=== PATIENT | female | born 1960 | race Caucasian/White ===

== ENCOUNTER 2016-11-22 16:39 | Emergency (ER) | payer MEDICAID, OTHER ==
[~2016-11-22] VITALS: Ht 162.6 cm; Wt 89.0 kg
[~2016-11-22 16:39] MED LIST: ASPIRIN PO; CEVI30CA PO; FLOUXETINE PO; FOLI-43 PO; GEMF600T PO; HYDR200T35 PO; LEVOTHYROXINE PO; LORA0.5T2 PO; MELO-58 PO; RANI15SY; TEMA15CA PO; TERB250T11 PO
[2016-11-22 16:48] VITALS: BP 102/68
== END 2016-11-23 01:27 | disposition left against medical advice (07) ==
LOC: ER 11-23 01:08
DX: Z53.21 Procedure and treatment not carried out due to patient leaving prior to being seen by health care provider (principal)

== ENCOUNTER 2021-03-18 11:04 | Emergency (ER) | payer MEDICAID ==
[~2021-03-18] VITALS: Ht 157.5 cm; Wt 85.0 kg
[~2021-03-18 11:04] MED LIST changes: +MELO-106 PO; -MELO-58 PO; -TERB250T11 PO; +TERB250T51 PO; +TYLENOL #3 PO
[2021-03-18] MEDS ORDERED: ASPIRIN 81MG TABLET PO ONE (11:30)
[2021-03-18 11:51] LABS: BASOPHILS % 1.3 % (0.0-2.0); HEMATOCRIT. 34.6 % (36.0-48.0); MEAN CORPUSCULAR HEMOGLOBIN 32.2 pg (28.0-32.0); MEAN CORPUSCULAR VOLUME 93.1 fL (81.0-99.0); MEAN PLATELET VOLUME 8.3 fl (7.4-10.4); MONOCYTES % 9.1 % (2.0-8.0); NEUTROPHILS % 62.6 % (40.0-76.0); PLATELET 319 x1000/uL (130-400); RED BLOOD CELL COUNT 3.72 mill/uL (4.2-5.4); RED CELL DISTRIBUTION WIDTH 13.1 % (11.6-14.6)
[2021-03-18 11:59] LABS: CHLORIDE 109 mEq/L (98-107)
[2021-03-18] MEDS: NITROGLYCERIN 0.4MG TABLET SL SL PRN ×3 (11:59→12:43)
[2021-03-18 16:14] VITALS: BP 127/75
== END 2021-03-18 16:22 | disposition home or self-care (01) ==
LOC: ER 11:04
DX: R07.89 Other chest pain (principal)
CPT/HCPCS: 36415; 71045; 80053; 83880; 84484; 85025; 93005; 99285; Z7610

== ENCOUNTER 2022-05-29 14:40 | Emergency (ER) | payer MEDICAID ==
[~2022-05-29] VITALS: Ht 154.9 cm; Wt 80.0 kg
[~2022-05-29 14:40] MED LIST changes: -CEVI30CA PO; +CEVI30CA12 PO; -TERB250T51 PO; +TERB250T88 PO
[2022-05-29] MEDS ORDERED: SODIUM CHLORIDE 0.9% 1,000 ML IV ONE (15:30)
[2022-05-29 15:54] LABS: BASOPHILS % 1.5 % (0.0-2.0); EOSINOPHILS % 5.9 % (0.0-5.0); HEMATOCRIT. 37.8 % (36.0-48.0); LYMPHOCYTES % 37.3 % (20.0-50.0); MEAN CORPUSCULAR HEMOGLOBIN 31.9 pg (28.0-32.0); MEAN CORPUSCULAR VOLUME 93.1 fL (81.0-99.0); MEAN PLATELET VOLUME 8.9 fl (7.4-10.4); MONOCYTES % 9.5 % (2.0-8.0); NEUTROPHILS % 45.8 % (40.0-76.0); PLATELET 315 x1000/uL (130-400); RED BLOOD CELL COUNT 4.06 mill/uL (4.2-5.4); RED CELL DISTRIBUTION WIDTH 12.9 % (11.6-14.6)
[2022-05-29 15:55] LABS: CLARITY URINE CLEAR (CLEAR); COLOR URINE YELLOW (YELLOW); KETONES URINE NEGATIVE (NEGATIVE); LEUKOCYTE ESTERASE URINE 3+ (NEGATIVE); NITRITE URINE NEGATIVE (NEGATIVE); OCCULT BLOOD URINE TRACE (NEGATIVE); PH URINE 6.5 (4.5-8.0); PROTEIN URINE NEGATIVE (NEGATIVE); SPECIFIC GRAVITY URINE 1.004 (1.005-1.030); UROBILINOGEN URINE 0.2 E.U./dL (0.2-1.0)
[2022-05-29 16:00] LABS: CHLORIDE 107 mEq/L (98-107)
[2022-05-29 16:04] LABS: PROTHROMBIN TIME 10.5 sec (9.6-11.0)
[2022-05-29 16:59] VITALS: BP 153/66
[2022-05-29] MEDS ORDERED: NITR-87 MT (18:55)
== END 2022-05-29 19:40 | disposition home or self-care (01) ==
LOC: ER 14:40
DX: N39.0 Urinary tract infection, site not specified (principal); R53.1 Weakness; D64.9 Anemia, unspecified; F41.9 Anxiety disorder, unspecified; F32.9 Major depressive disorder, single episode, unspecified; Z90.49 Acquired absence of other specified parts of digestive tract; M79.7 Fibromyalgia; Z79.899 Other long term (current) drug therapy
CPT/HCPCS: 36415; 74176; 80053; 81003; 83690; 85025; 85610; 86850; 86900; 86901; 93005; 99285; J7030

== ENCOUNTER 2023-12-04 19:10 | Emergency (ER) | payer MEDICAID ==
[~2023-12-04] VITALS: Ht 157.5 cm; Wt 78.0 kg
[~2023-12-04 19:10] MED LIST changes: -ASPIRIN PO; +BACL20TA PO; -CEVI30CA12 PO; +CYCL10TA21 PO; +DICL100G58 TP; +FERR325T6 PO; -FLOUXETINE PO; +FLUO20CA33 PO; +FOLI-43 MT; +FURO40TA5 PO; -GEMF600T PO; -HYDR200T35 PO; -LEVOTHYROXINE PO; +LIP40 PO; +LORA-249 PO; +MECL-217 PO; +MELO-104 PO; +METH2.5T MT; +METO-396 PO; -RANI15SY; -TEMA15CA PO; -TERB250T88 PO; -TYLENOL #3 PO
[2023-12-04 19:52] VITALS: O2SAT 98
[2023-12-04] MEDS: MAGNESIUM/ALUMINUM HYDROXIDE/SIMETHICONE 30ML UDC PO STA (20:21)
[2023-12-04] MEDS: ACETAMINOPHEN 325MG TABLET PO STA (20:21)
[2023-12-04 20:58] LABS: CHLORIDE 107 mEq/L (98-107); SODIUM 142 mEq/L (136-145)
[2023-12-04 20:59] LABS: CALCIUM 10.1 mg/dL (8.7-10.4); CARBON DIOXIDE 24 mEq/L (21-32)
[2023-12-04 21:01] LABS: BASOPHILS % 1.2 % (0.0-2.0); EOSINOPHILS % 2.9 % (0.0-5.0); HEMATOCRIT. 35.1 % (36.0-48.0); HEMOGLOBIN. 12.1 g/dL (12.0-16.0); LYMPHOCYTES % 30.9 % (20.0-50.0); MEAN CORPUSCULAR HEMOGLOBIN 32.4 pg (28.0-32.0); MEAN CORPUSCULAR HGB CONC 34.5 g/dL (31.0-37.0); MEAN CORPUSCULAR VOLUME 93.7 fL (81.0-99.0); MONOCYTES % 7.8 % (2.0-8.0); NEUTROPHILS % 57.2 % (40.0-76.0); PLATELET 339 x1000/uL (130-400); RED BLOOD CELL COUNT 3.74 mill/uL (4.2-5.4); RED CELL DISTRIBUTION WIDTH 13.3 % (11.6-14.6); WHITE BLOOD COUNT 9.1 x1000/uL (4.5-11.0)
[2023-12-04 21:04] LABS: CREATININE 0.7 mg/dL (0.6-1.0); GLUCOSE 91 mg/dL (70-105); UREA NITROGEN BLOOD 11 mg/dL (9-23)
[2023-12-04 21:06] LABS: ALANINE AMINOTRANSFERASE 51 IU/L (10-49); ALBUMIN 4.8 g/dL (3.2-4.8); ASPARTATE AMINOTRANSFERASE 37 IU/L (<34); BILIRUBIN TOTAL 1.1 mg/dL (0.1-1.0); PROTEIN TOTAL 7.2 g/dL (6.0-8.3)
[2023-12-04] MEDS: POTASSIUM CHLORIDE 20MEQ/PACKET PO ONE (22:00)
[2023-12-04] MEDS ORDERED: FAMO-135 MT (23:08)
[2023-12-04] MEDS ORDERED: IMOD MT (23:08)
[2023-12-04 23:27] VITALS: BP 135/77; PULSE 60; RESP 16; TEMP 98.1
== END 2023-12-04 23:18 | disposition home or self-care (01) ==
LOC: ER 19:10
DX: K29.70 Gastritis, unspecified, without bleeding (principal); F41.9 Anxiety disorder, unspecified; J45.909 Unspecified asthma, uncomplicated; F32.9 Major depressive disorder, single episode, unspecified; E78.00 Pure hypercholesterolemia, unspecified; I10 Essential (primary) hypertension; M79.7 Fibromyalgia; Z79.899 Other long term (current) drug therapy
CPT/HCPCS: 36415; 76705; 80053; 85025; 99284

== ENCOUNTER 2025-01-01 21:05 | Inpatient (IN) | payer MEDICARE, MEDICAID ==
[~2025-01-01] VITALS: Ht 152.4 cm; Wt 77.3 kg
[2025-01-01 21:05] VITALS: BP 120/71; PULSE 58; RESP 18; RESP 20; TEMP 36.4; TEMP 36.4736; O2SAT 96
[~2025-01-01 21:05] MED LIST changes: +ASPI-1406 PO; +CLON-493 PO; +FAMO-135 MT; +IMOD MT; +ISOS40TA17 PO; +LABE200T9 PO; +NIFE-32 PO; +SENN-174 PO; +SEVE800T8 PO; +SPIR25TA6 PO; +SUCR1TAB PO; +THIA100T72 PO
[2025-01-01] MEDS ORDERED: NITROGLYCERIN 0.4MG TABLET SL SL PRN (21:45)
[2025-01-01] MEDS ORDERED: GUAIFENESIN 200MG/10ML SUGAR FREE UDC PO PRN (21:45)
[2025-01-01] MEDS ORDERED: CLONIDINE 0.1MG TABLET PO PRN (21:45)
[2025-01-01] MEDS ORDERED: HYDROXYZINE 25MG TABLET PO PRN (21:45)
[2025-01-01] MEDS ORDERED: NALOXONE HCL 0.4MG/ML 1ML VIAL IV PRN (21:45)
[2025-01-01] MEDS ORDERED: IPRATROPIUM/ALBUTEROL 0.5-3(2.5)MG/3ML NEB HHN PRN (21:45)
[2025-01-01] MEDS ORDERED: LORAZEPAM 0.5MG TABLET PO PRN (21:45)
[2025-01-01] MEDS ORDERED: MORPHINE SULFATE 2 MG/ML INJ (NOT FOR IM USE) IV PRN (21:45)
[2025-01-01] MEDS ORDERED: DEXTROSE 50% WATER 50ML SYRINGE IV PRN (22:00)
[2025-01-02] MEDS: SUCRALFATE 1G TABLET PO SCH (06:01)
[2025-01-02] MEDS: BLOOD SUGAR DIAGNOSTIC STRIP TEST SCH (06:12)
[2025-01-02 06:48] LABS: BASOPHILS % 1.3 % (0.0-2.0); EOSINOPHILS % 5.0 % (0.0-5.0); HEMATOCRIT. 32.8 % (36.0-48.0); HEMOGLOBIN. 11.3 g/dL (12.0-16.0); LYMPHOCYTES % 36.3 % (20.0-50.0); MEAN PLATELET VOLUME 9.1 fl (7.4-10.4); MONOCYTES % 8.6 % (2.0-8.0); NEUTROPHILS % 48.8 % (40.0-76.0); PLATELET 290 x1000/uL (130-400); RED BLOOD CELL COUNT 3.52 mill/uL (4.2-5.4); RED CELL DISTRIBUTION WIDTH 12.9 % (11.6-14.6)
[2025-01-02 07:10] LABS: CREATININE 0.8 mg/dL (0.6-1.0)
[2025-01-02 07:11] LABS: UREA NITROGEN BLOOD 17 mg/dL (9-23)
[2025-01-02 07:12] LABS: ASPARTATE AMINOTRANSFERASE 67 IU/L (<34)
[2025-01-02 07:13] LABS: BILIRUBIN TOTAL 0.9 mg/dL (0.1-1.0); PROTEIN TOTAL 6.3 g/dL (6.0-8.3)
[2025-01-02 08:00] VITALS: BP 100/65; PULSE 71; RESP 18; TEMP 36.1; O2SAT 97
[2025-01-02] MEDS: INSULIN LISPRO 100 UNITS/ML SUBCUT SCH (09:00)
[2025-01-02] MEDS: LACTULOSE 20G/30ML UDC PO SCH (10:00)
[2025-01-02] MEDS: FOLIC ACID 1MG TABLET PO SCH (10:16)
[2025-01-02] MEDS: MULTIVITAMINS,THER W-MINERALS TABLET PO SCH (10:16)
[2025-01-02] MEDS: FAMOTIDINE 20MG/2ML VIAL IV SCH (10:16)
[2025-01-02] MEDS: THIAMINE HCL 100MG TABLET PO SCH (10:16)
[2025-01-02] MEDS: FLUOXETINE HCL 10 MG CAPSULE PO SCH (10:16)
[2025-01-02] MEDS: ASPIRIN 81MG TABLET PO SCH (10:16)
[2025-01-02] MEDS: ENOXAPARIN 80MG/0.8ML SYR SUBCUT SCH (10:17)
[2025-01-02] MEDS: ONDANSETRON HCL 4MG/2ML INJ IV PRN (10:43)
[2025-01-02 20:00] VITALS: BP 121/73; PULSE 69; RESP 18; TEMP 36.6; O2SAT 99
[2025-01-02] MEDS: ATORVASTATIN CALCIUM 40MG TABLET PO SCH (20:42)
[2025-01-03 08:00] VITALS: BP 98/60; PULSE 65; RESP 19; TEMP 36.4; O2SAT 97
[2025-01-03 08:27] LABS: BASOPHILS % 1.1 % (0.0-2.0); EOSINOPHILS % 5.2 % (0.0-5.0); HEMATOCRIT. 33.9 % (36.0-48.0); HEMOGLOBIN. 11.1 g/dL (12.0-16.0); LYMPHOCYTES % 28.5 % (20.0-50.0); MEAN PLATELET VOLUME 9.4 fl (7.4-10.4); MONOCYTES % 10.9 % (2.0-8.0); NEUTROPHILS % 54.3 % (40.0-76.0); PLATELET 284 x1000/uL (130-400); RED BLOOD CELL COUNT 3.56 mill/uL (4.2-5.4); RED CELL DISTRIBUTION WIDTH 13.4 % (11.6-14.6)
[2025-01-03] MEDS: ACETAMINOPHEN 325MG TABLET PO PRN (08:31)
[2025-01-03 08:34] LABS: CREATININE 0.8 mg/dL (0.6-1.0); UREA NITROGEN BLOOD 17 mg/dL (9-23)
[2025-01-03 08:35] LABS: PROTEIN TOTAL 6.3 g/dL (6.0-8.3)
[2025-01-03 08:36] LABS: ASPARTATE AMINOTRANSFERASE 100 IU/L (<34); BILIRUBIN TOTAL 1.0 mg/dL (0.1-1.0)
[2025-01-03 08:39] LABS: FOLIC ACID (FOLATE) SERUM 16.29 ng/mL (>5.38); VITAMIN B12 SERUM 488 pg/mL (211-911)
[2025-01-03] MEDS ORDERED: HYDROCODONE/ACETAMINOPHEN 5/325MG TABLET PO PRN (12:00)
[2025-01-03] MEDS: CYANOCOBALAMIN 1000MCG/ML VIAL IM SCH (17:18)
[2025-01-03 20:00] VITALS: BP 104/62; PULSE 74; RESP 18; TEMP 36.4
[2025-01-04 08:00] VITALS: BP 101/50; PULSE 65; RESP 18; TEMP 36.5; O2SAT 98
[2025-01-04] MEDS: DOCUSATE SODIUM 100MG CAPSULE PO PRN (14:51)
[2025-01-04] MEDS: NA PHOS,M-B/NA PHOS,DI-BA ENEMA 118ML PR PRN (17:14)
[2025-01-04 20:00] VITALS: BP 105/65; PULSE 74; RESP 18; TEMP 36.3; O2SAT 97
[2025-01-05 08:00] VITALS: BP 101/58; PULSE 62; RESP 16; TEMP 36.5; O2SAT 100
[2025-01-05 11:17] LABS: BASOPHILS % 0.9 % (0.0-2.0); EOSINOPHILS % 5.2 % (0.0-5.0); HEMATOCRIT. 32.8 % (36.0-48.0); HEMOGLOBIN. 11.2 g/dL (12.0-16.0); LYMPHOCYTES % 25.8 % (20.0-50.0); MEAN PLATELET VOLUME 8.6 fl (7.4-10.4); MONOCYTES % 9.7 % (2.0-8.0); NEUTROPHILS % 58.4 % (40.0-76.0); PLATELET 289 x1000/uL (130-400); RED BLOOD CELL COUNT 3.51 mill/uL (4.2-5.4); RED CELL DISTRIBUTION WIDTH 13.0 % (11.6-14.6)
[2025-01-05 11:22] LABS: INR 1.0
[2025-01-05 11:27] LABS: CREATININE 0.8 mg/dL (0.6-1.0); UREA NITROGEN BLOOD 12 mg/dL (9-23)
[2025-01-05 20:00] VITALS: BP 103/78; PULSE 68; RESP 20; TEMP 36.4; O2SAT 100
[2025-01-06 06:45] LABS: CREATININE 0.8 mg/dL (0.6-1.0); UREA NITROGEN BLOOD 16 mg/dL (9-23)
[2025-01-06 07:02] LABS: BASOPHILS % 1.0 % (0.0-2.0); EOSINOPHILS % 4.8 % (0.0-5.0); HEMATOCRIT. 30.0 % (36.0-48.0); HEMOGLOBIN. 10.5 g/dL (12.0-16.0); LYMPHOCYTES % 27.5 % (20.0-50.0); MEAN PLATELET VOLUME 9.5 fl (7.4-10.4); MONOCYTES % 9.8 % (2.0-8.0); NEUTROPHILS % 56.9 % (40.0-76.0); PLATELET 285 x1000/uL (130-400); RED BLOOD CELL COUNT 3.19 mill/uL (4.2-5.4); RED CELL DISTRIBUTION WIDTH 12.8 % (11.6-14.6)
[2025-01-06 08:00] VITALS: BP 104/55; PULSE 71; RESP 16; TEMP 36.4; O2SAT 96
[2025-01-06] MEDS: POTASSIUM CHLORIDE 20MEQ TABLET SR PO SCH (16:47)
[2025-01-06 20:00] VITALS: BP 115/65; PULSE 74; RESP 18; TEMP 36.6; O2SAT 98
[2025-01-07 07:44] LABS: BASOPHILS % 1.0 % (0.0-2.0); EOSINOPHILS % 5.3 % (0.0-5.0); HEMATOCRIT. 29.9 % (36.0-48.0); HEMOGLOBIN. 10.3 g/dL (12.0-16.0); LYMPHOCYTES % 32.4 % (20.0-50.0); MEAN PLATELET VOLUME 9.6 fl (7.4-10.4); MONOCYTES % 10.6 % (2.0-8.0); NEUTROPHILS % 50.7 % (40.0-76.0); PLATELET 277 x1000/uL (130-400); RED BLOOD CELL COUNT 3.18 mill/uL (4.2-5.4); RED CELL DISTRIBUTION WIDTH 13.1 % (11.6-14.6)
[2025-01-07 08:00] VITALS: BP 100/60; PULSE 72; RESP 17; TEMP 36.6; O2SAT 98
[2025-01-07 08:03] LABS: CREATININE 0.7 mg/dL (0.6-1.0); UREA NITROGEN BLOOD 15 mg/dL (9-23)
[2025-01-07] MEDS: NA PHOS,M-B/NA PHOS,DI-BA ENEMA 118ML PR SCH (18:00)
[2025-01-07] MEDS: LACTULOSE 20G/30ML UDC PO SCH (18:43)
[2025-01-07] MEDS: ERGOCALCIFEROL 50000UNITS CAPSULE PO SCH (18:43)
[2025-01-07 20:00] VITALS: BP 114/61; PULSE 72; RESP 18; TEMP 36.7; O2SAT 98
[2025-01-08 08:00] VITALS: BP 100/43; PULSE 88; RESP 17; TEMP 36.4; O2SAT 100
[2025-01-08] MEDS: MAGNESIUM/ALUMINUM HYDROXIDE/SIMETHICONE 30ML UDC PO PRN (10:00)
[2025-01-08 20:00] VITALS: BP 118/48; PULSE 77; RESP 18; TEMP 36.5; O2SAT 98
[2025-01-09 08:00] VITALS: BP 100/59; PULSE 69; RESP 18; TEMP 35.8; O2SAT 96
[2025-01-09 13:28] VITALS: BP 100/59; PULSE 69; RESP 18; TEMP 96.5
[2025-01-09] MEDS ORDERED: FLUO-335 PO (14:03)
[2025-01-09] MEDS ORDERED: SENN-174 PO (14:03)
[2025-01-09] MEDS ORDERED: SUCR1TAB PO (14:03)
[2025-01-09] MEDS ORDERED: FERR325T6 PO (14:03)
[2025-01-09] MEDS ORDERED: ASPI-1406 PO (14:03)
[2025-01-09] MEDS ORDERED: MULT-1146 PO (14:03)
[2025-01-09] MEDS ORDERED: FOLI-43 PO (14:03)
[2025-01-09] MEDS ORDERED: LIP40 PO (14:03)
[2025-01-09] MEDS ORDERED: POLY119P2 PO (14:03)
[2025-01-09] MEDS ORDERED: THIA100T72 PO (14:03)
[2025-01-09] MEDS ORDERED: FAMO-135 PO (14:03)
[2025-01-09] MEDS ORDERED: ERGO1250 PO (14:03)
[2025-01-09] MEDS ORDERED: APIX5TAB PO (20:20)
== END 2025-01-09 16:50 | disposition home or self-care (01) | DRG 74 ==
PROVIDERS: ADMIT Physical Medicine & Rehabilitation Spinal Cord Injury Medicine; ATTEND Internal Medicine
DX: G62.9 Polyneuropathy, unspecified (principal); N39.0 Urinary tract infection, site not specified; F03.93 Unspecified dementia, unspecified severity, with mood disturbance; F03.94 Unspecified dementia, unspecified severity, with anxiety; F33.1 Major depressive disorder, recurrent, moderate; D64.9 Anemia, unspecified; E78.00 Pure hypercholesterolemia, unspecified; G89.4 Chronic pain syndrome; I10 Essential (primary) hypertension; J45.909 Unspecified asthma, uncomplicated; M48.061 Spinal stenosis, lumbar region without neurogenic claudication; E55.9 Vitamin D deficiency, unspecified; E66.811 Obesity, class 1; F41.9 Anxiety disorder, unspecified; M47.812 Spondylosis without myelopathy or radiculopathy, cervical region; M47.816 Spondylosis without myelopathy or radiculopathy, lumbar region; M51.369 Other intervertebral disc degeneration, lumbar region without mention of lumbar back pain or lower extremity pain; R26.9 Unspecified abnormalities of gait and mobility; R53.81 Other malaise; R73.9 Hyperglycemia, unspecified; F41.1 Generalized anxiety disorder; R42 Dizziness and giddiness; R53.1 Weakness; R07.89 Other chest pain; Z87.891 Personal history of nicotine dependence; Z88.1 Allergy status to other antibiotic agents; Z88.2 Allergy status to sulfonamides; Z88.3 Allergy status to other anti-infective agents; Z91.041 Radiographic dye allergy status; Z91.81 History of falling; Z68.33 Body mass index [BMI] 33.0-33.9, adult
CPT/HCPCS: 36415; 74018; 80048; 80053; 82306; 82607; 82728; 82746; 82962; 83036; 83540; 83550; 84134; 84443; 85025; 97110; 97112; 97116; 97162; 97166; 97530; 97535; A4606; J1308; J1650; J2405; J3420